=== PATIENT | female | born 1980 | race African-American/Black ===

== ENCOUNTER → 2017-04-15 | Outpatient (CLI) | payer OTHER | LOC: RAD 09:05 | DX: M25.511 Pain in right shoulder (principal) ==

== ENCOUNTER → 2017-06-30 | Outpatient (CLI) | payer OTHER | LOC: ULTRA 08:43 | DX: O34.81 Maternal care for other abnormalities of pelvic organs, first trimester (principal); O30.001 Twin pregnancy, unspecified number of placenta and unspecified number of amniotic sacs, first trimester; O09.521 Supervision of elderly multigravida, first trimester; Z3A.01 Less than 8 weeks gestation of pregnancy ==